=== PATIENT | female | born 1995 | race Caucasian/White ===

== ENCOUNTER 2018-03-02 10:26 | Emergency (ER) | payer OTHER ==
--- NOTE | 2018-03-02 11:03 | ER Document Report ---
ED General - General Chief Complaint: Abdominal Pain Stated Complaint: ABDOMINAL PAIN, DIARRHEA Time Seen by Provider: 03/02/18 10:41 TRAVEL OUTSIDE OF THE [place].S. IN LAST 30 DAYS: No - HPI Patient complains to provider of: Diarrhea abdominal pain Notes: Patient coming in for evaluation diarrhea abdominal pain. Patient has a home function tests states approximately 5 weeks by dates. Patient states that the pain suprapubic going up through straight to the epigastric region. Patient denies any nausea vomiting. Denies any fevers chills. Patient denies any recent antibiotics however recently moved from [place] to walk around. Resting company upon my evaluation. Patient has not seek any care at . Patient is not currently taking any vitamins. - Related Data Allergies/Adverse Reactions: sulfamethoxazole [From Bactrim] Allergy (Verified 03/02/18 10:34) trimethoprim [From Bactrim] Allergy (Verified 03/02/18 10:34) Past Medical History - Social History Smoking Status: Never Smoker Chew tobacco use (# tins/day): No Frequency of alcohol use: None Drug Abuse: None Family History: Reviewed & Not Pertinent Patient has suicidal ideation: No Patient has homicidal ideation: No Renal/ Medical History: Denies: Hx Peritoneal Dialysis Review of Systems - Review of Systems Constitutional: No symptoms reported EENT: No symptoms reported Cardiovascular: No symptoms reported Respiratory: No symptoms reported Gastrointestinal: Abdominal pain, Diarrhea Genitourinary: No symptoms reported Female Genitourinary: No symptoms reported Musculoskeletal: No symptoms reported Skin: No symptoms reported Hematologic/Lymphatic: No symptoms reported Neurological/Psychological: No symptoms reported -: Yes All other systems reviewed and negative Physical Exam - Vital signs Vitals: Temp Pulse Resp BP Pulse Ox 98.8 F 87 16 129/76 H 97 03/02/18 10:30 03/02/18 10:30 03/02/18 10:30 03/02/18 10:30 03/02/18 10:30 Interpretation: Normal - General General appearance: Appears well, Alert - HEENT Head: Normocephalic, Atraumatic Eyes: Normal Pupils: PERRL - Respiratory Respiratory status: No respiratory distress Chest status: Nontender Breath sounds: Normal Chest palpation: Normal - Cardiovascular Rhythm: Regular Heart sounds: Normal auscultation Murmur: No - Abdominal Inspection: Normal Distension: No distension Bowel sounds: Normal Tenderness: Nontender Organomegaly: No organomegaly - Back Back: Normal, Nontender - Extremities General upper extremity: Normal inspection, Nontender, Normal color, Normal ROM , Normal temperature General lower extremity: Normal inspection, Nontender, Normal color, Normal ROM , Normal temperature, Normal weight bearing. No: Efrem's sign - Neurological Neuro grossly intact: Yes Cognition: Normal Orientation: AAOx4 Ana Coma Scale Eye Opening: Spontaneous [place] Coma Scale Verbal: Oriented [place] Coma Scale Motor: Obeys Commands [place] Coma Scale Total: 15 Speech: Normal Motor strength normal: LUE, RUE, LLE, RLE Sensory: Normal - Psychological Associated symptoms: Normal affect, Normal mood - Skin Skin Temperature: Warm Skin Moisture: Dry Skin Color: Normal Course - Re-evaluation Re-evalutation: 03/02/18 15:14 The patient presents with abdominal pain without signs of peritonitis or other life-threatening or serious etiology. The patient appears stable for discharge and has been instructed to return immediately if the symptoms worsen in any way , or in 8-12hr if not improved for re-evaluation. The patient has been instructed to return if the symptoms worsen or change in any way. Possible early uterine seen. Gestational sac seen. Risk of ectopic therefore decreased. Recommend patient follow-up in 7248 hours for repeat testing. Patient is understanding patient states understanding about use of Celestone vitamins were used to vitamins. Patient was given information for nausea vomiting. Patient also educated about increasing her fiber and yogurt intake for diarrhea. - Vital Signs Vital signs: Temp Pulse Resp BP Pulse Ox 97.3 F 82 14 122/74 100 03/02/18 14:00 03/02/18 14:00 03/02/18 14:00 03/02/18 14:00 03/02/18 14:00 - Laboratory Result Diagrams: 03/02/18 10:50 03/02/18 10:50 Laboratory results interpreted by me: 03/02/18 10:50 Beta HCG, Quant 4931.40 H Discharge - Discharge Clinical Impression: Diarrhea during Abdominal pain during Qualifiers: Trimester: first trimester Qualified Code(s): O26.891 - Other specified related conditions, first trimester Condition: Good Instructions: Abdominal Pain ([facility]), Pelvic Pain in ([facility]), ( [facility]) Additional Instructions: For nausea and vomiting during I recomment: Start with 10-12.5 mg of pyridoxine (vitamin B6) three times a day for 2 days. If not fully effective, Increase to 12.5 mg of pyridoxine four times a day for 2 days. If not fully effective, Increase to 25 mg of pyridoxine three times a day for 2 days. If not fully effective, Continue 25 mg pyridoxine 3 times a day, and add 12.5 mg of doxylamine before bedtime each day for 2 days. If not fully effective, Continue 25 mg pyridoxine 3 times a day, and take 12.5 mg of doxylamine twice a day. If not fully effective, Continue 25 mg pyridoxine 3 times a day, and take 12.5 mg of doxylamine three times a day. If not fully effective, Continue 25 mg pyridoxine 3 times a day, and 12.5 mg of doxylamine 3 times a day , while adding Emetrol, one to two tablespoons (15-30 cc) taken once or twice a day as needed. (Emetrol is an lxjz-wvo-imdexsr mixture of sugar syrups and phosphoric acid [phosphorylated carbohydrate solution]) that acts by soothing the actual wall of the gastrointestinal tract). If not fully effective, Consult with your doctor. Your ultrasound shows a gestational sac looks like to be early uterine approximately 5 weeks. I would recommend following up in 4872 hours for repeat beta-hCG testing. Lab form is any discharge packet. Drink plenty fluids to stay hydrated take medications as stated above for any nausea that she may have. Would recommend increasing her fiber eating more yogurt to help out with her diarrhea. Return to ER symptoms worsen follow-up with the SUPPORT SERVICES COORDINATOR clinic or health department Prescriptions: Prenat 115/Iron Fum/Folic/Dss [ 19 Tablet] 1 each PO DAILY #30 tablet Forms: Follow-Up Laboratory Testing Referrals: REECE GARCIA MD [ACTIVE STAFF] - Follow up as needed
[2018-03-02 11:34] LABS: ABSOLUTE EOSINOPHILS # (AUTO) 0.1 10^3/uL (0.0-0.6); ABSOLUTE LYMPHOCYTES (AUTO) 1.9 10^3/uL (0.5-4.7); ABSOLUTE MONOCYTES (AUTO) 0.5 10^3/uL (0.1-1.4); BASOPHILS % (AUTO) 0.2 % (0-2); EOSINOPHILS % (AUTO) 1.7 % (0-6); HEMATOCRIT 40.4 % (36.0-47.0); LYMPHOCYTES % (AUTO) 29.2 % (13-45); MEAN CORPUSCULAR HEMOGLOBIN 32.5 pg (27.0-33.4); MEAN CORPUSCULAR HGB CONC 34.6 g/dL (32.0-36.0); MEAN CORPUSCULAR VOLUME 94 fl (80-97); MONOCYTES % (AUTO) 7.7 % (3-13); PLATELET COUNT 275 10^3/uL (150-450); RED BLOOD COUNT 4.31 10^6/uL (3.72-5.28); RED CELL DISTRIBUTION WIDTH 12.3 % (11.5-14.0); SEGMENTED NEUTROPHILS % (AUTO) 61.2 % (42-78); TOTAL CELLS COUNTED % (AUTO) 100 %; WHITE BLOOD COUNT 6.6 10^3/uL (4.0-10.5)
[2018-03-02 11:54] LABS: ALANINE AMINOTRANSFERASE 35 U/L (9-52); ALBUMIN 4.3 g/dL (3.5-5.0); ALKALINE PHOSPHATASE 50 U/L (38-126); ANION GAP 14 (5-19); ASPARTATE AMINO TRANSFERASE 21 U/L (14-36); BILIRUBIN,DIRECT 0.3 mg/dL (0.0-0.4); BILIRUBIN,TOTAL 0.3 mg/dL (0.2-1.3); BLOOD UREA NITROGEN 7 mg/dL (7-20); CALCIUM 9.8 mg/dL (8.4-10.2); CARBON DIOXIDE 26 mmol/L (22-30); CHLORIDE 103 mmol/L (98-107); GLUCOSE 95 mg/dL (75-110); LIPASE 43.8 U/L (23-300); TOTAL PROTEIN 7.6 g/dL (6.3-8.2)
--- NOTE | 2018-03-02 13:32 | RADIOLOGY REPORT (SQ) ---
EXAM DESCRIPTION: U/S OB TRANSVAG W/DOPPLER COMPLETED DATE/TIME: 03/02/2018 1:21 pm REASON FOR STUDY: +preg abd pain COMPARISON: None. TECHNIQUE: Transvaginal static and realtime grayscale images acquired of the pelvis. Additional nolan cted spectral and color Doppler images recorded. All images stored on PACs. bHC,931 LIMITATIONS: None. FINDINGS: UTERUS: No masses. No anomalies. GESTATIONAL SAC: Yes. Mean sac diameter corresponding to 5 weeks 3 days. YOLK SAC: No. POLE: No. RIGHT ADNEXA: Normal ovary with normal vascular flow. No adnexal free fluid. No adnexal masses. LEFT ADNEXA: Ovary not identified. No adnexal free fluid. No adnexal masses. FREE FLUID: None. OTHER: No other significant finding. IMPRESSION: POSSIBLE EARLY INTRAUTERINE . BHCG LEVEL APPROPRIATE FOR ENDOMETRIAL FINDINGS. CONSIDER F/U BHCG AND/OR ULTRASOUND FOR VERIFICATION AND TO EXCLUDE ECTOPIC . Trimester of : First - 0 to 13 weeks. TECHNICAL DOCUMENTATION: JOB ID: [id number] [employer]- All Rights Reserved Reading location - IP/workstation name: [email or web address]
[2018-03-02 14:36] VITALS: BP 122/74
== END 2018-03-02 14:00 | disposition home or self-care (01) ==
LOC: ER 10:26
DX: O26.891 Other specified pregnancy related conditions, first trimester (principal); R10.30 Lower abdominal pain, unspecified; R10.13 Epigastric pain; R19.7 Diarrhea, unspecified; Z3A.00 Weeks of gestation of pregnancy not specified; Z88.1 Allergy status to other antibiotic agents
CPT/HCPCS: 36415; 76817; 80053; 83690; 84702; 85025; 93976; 99284

== ENCOUNTER 2018-05-03 13:33 | Emergency (ER) | payer OTHER ==
--- NOTE | 2018-05-03 14:27 | ER Document Report ---
ED GI/ - General Chief Complaint: Flank Pain Stated Complaint: BACK PAIN Time Seen by Provider: 05/03/18 14:21 Notes: The patient is a 22-year-old female, 13 weeks , presents with right flank pain. She used to have frequent kidney infections and passed a kidney stone when she was younger. She denies hematuria, dysuria, abdominal pain, leakage of fluids, nausea, vomiting or fevers. TRAVEL OUTSIDE OF THE U.S. IN LAST 30 DAYS: No - Related Data Allergies/Adverse Reactions: sulfamethoxazole [From Bactrim] Allergy (Verified 05/03/18 13:47) trimethoprim [From Bactrim] Allergy (Verified 05/03/18 13:47) Past Medical History - General Information source: Patient - Social History Smoking Status: Never Smoker Chew tobacco use (# tins/day): No Frequency of alcohol use: None Drug Abuse: None Family History: Reviewed & Not Pertinent Patient has suicidal ideation: No Patient has homicidal ideation: No Renal/ Medical History: Denies: Hx Peritoneal Dialysis Review of Systems - Review of Systems Notes: REVIEW OF SYSTEMS: CONSTITUTIONAL: -fevers, -chills EENT: -eye pain, -difficulty swallowing, -nasal congestion CARDIOVASCULAR: -chest pain, -syncope. RESPIRATORY: -cough, -SOB GASTROINTESTINAL: -abdominal pain, -nausea, -vomiting, -diarrhea GENITOURINARY: -dysuria, -hematuria MUSCULOSKELETAL: +right flank pain, -neck pain SKIN: -rash or skin lesions. HEMATOLOGIC: -easy bruising or bleeding. LYMPHATIC: -swollen, enlarged glands. NEUROLOGICAL: -altered mental status or loss of consciousness, -headache, - neurologic symptoms PSYCHIATRIC: -anxiety, -depression. ALL OTHER SYSTEMS REVIEWED AND NEGATIVE. Physical Exam - Vital signs Vitals: Temp Pulse Resp BP Pulse Ox 98.5 F 102 H 18 125/71 97 05/03/18 13:57 05/03/18 13:57 05/03/18 13:57 05/03/18 13:57 05/03/18 13:57 - Notes Notes: PHYSICAL EXAMINATION: GENERAL: Well-appearing, well-nourished and in no acute distress. HEAD: Atraumatic, normocephalic. EYES: Pupils equal round and reactive to light, extraocular movements intact, sclera anicteric, conjunctiva are normal. ENT: nares patent, oropharynx clear without exudates. Moist mucous membranes. NECK: Normal range of motion, supple without lymphadenopathy LUNGS: Breath sounds clear to auscultation bilaterally and equal. No wheezes rales or rhonchi. HEART: Regular rate and rhythm without murmurs ABDOMEN: Soft, nontender, normoactive bowel sounds. No guarding, no rebound. No masses appreciated. EXTREMITIES: Normal range of motion, no pitting or edema. No cyanosis. NEUROLOGICAL: Cranial nerves grossly intact. Normal speech, normal gait. Normal sensory and motor exams. PSYCH: Normal mood, normal affect. SKIN: Warm, Dry, normal turgor, no rashes or lesions noted. Course - Re-evaluation Re-evalutation: Patient appears very well. Her abdomen is completely soft and nontender. Urinalysis does not show evidence of a UTI or pyelonephritis and renal ultrasound does not show evidence of large kidney stones. Instructed her to follow-up with her OB. - Vital Signs Vital signs: Temp Pulse Resp BP Pulse Ox 98.5 F 102 H 18 125/71 97 05/03/18 13:57 05/03/18 13:57 05/03/18 13:57 05/03/18 13:57 05/03/18 13:57 - Laboratory Laboratory results interpreted by me: 05/03/18 14:34 Urine Ketones 20 H - Diagnostic Test Radiology reviewed: Image reviewed Radiology results interpreted by me: Renal US: Normal Discharge - Discharge Clinical Impression: Right flank pain Condition: Stable Disposition: HOME, SELF-CARE Additional Instructions: Flank Pain We weren't able to prove an exact cause for your flank pain. Pain in the flank can be caused by a muscle strain or spasm. Sometimes a kidney stone causes pain, but can't be found on our tests. Infection in the kidney should be evident on a urine test. Early shingles can occasionally cause flank pain, without the rash that proves the diagnosis. On rare occasions, disease of the pancreas, aorta, spleen, or colon can create pain in the flank. At this time, there's no evidence of a dangerous condition, and it seems safe for you to be at home. If the pain goes away and does not come back, no further testing will be needed. If pain persists, or becomes more severe, we may need to repeat some tests or order additional new testing. Blood in the urine, urgency to urinate frequently, and pain that radiates to the groin can indicate a kidney stone. Fever may mean that the pain is due to infection, either of the kidney or the colon (diverticulitis). If your pain is early shingles, you should develop an eruption of blisters in the painful area within a few days. Call the doctor or return if you have pain that is spreading or becoming more severe, pain that does not resolve with time, fever, or any other new symptoms. Referrals: WERNER TAPIA MD [ACTIVE STAFF] - Follow up as needed
[2018-05-03 14:52] LABS: APPEARANCE,URINE SLIGHTLY-CLOUDY; BILIRUBIN,URINE NEGATIVE (NEGATIVE); COLOR,URINE YELLOW; GLUCOSE, URINE NEGATIVE (NEGATIVE); KETONES,URINE 20 mg/dL (NEGATIVE); LEUKOCYTE ESTERASE,URINE NEGATIVE (NEGATIVE); NITRITE,URINE NEGATIVE (NEGATIVE); PROTEIN,URINE NEGATIVE (NEGATIVE); URINE SPECIFIC GRAVITY 1.013; UROBILINOGEN,URINE NEGATIVE mg/dL (<2.0)
--- NOTE | 2018-05-03 15:19 | RADIOLOGY REPORT (SQ) ---
EXAM DESCRIPTION: U/S RETROPERITON (RENAL/AORTA) COMPLETED DATE/TIME: 05/03/2018 3:05 pm REASON FOR STUDY: right flank pain, hx of stones COMPARISON: None. TECHNIQUE: Dynamic and static grayscale images acquired of the kidneys and bladder and recorded on P ACS. Additional selected color Doppler and spectral images recorded. LIMITATIONS: None. FINDINGS: RIGHT KIDNEY: Normal size. Normal echogenicity. No solid or suspicious masses. No hydronep hrosis. No calcifications. LEFT KIDNEY: Normal size. Normal echogenicity. No solid or suspicious masses. No hydronephrosis. No calcifications. BLADDER: Not fully distended OTHER FINDINGS: Patient is 4 months IMPRESSION: Both collecting systems appear normal. TECHNICAL DOCUMENTATION: JOB ID: [id number] [employer]- All Rights Reserved Reading location - IP/workstation name: [email or web address]
[2018-05-03 15:36] VITALS: BP 101/63
== END 2018-05-03 15:35 | disposition home or self-care (01) ==
LOC: ER 13:33
DX: O26.891 Other specified pregnancy related conditions, first trimester (principal); R10.9 Unspecified abdominal pain; Z3A.13 13 weeks gestation of pregnancy; Z87.440 Personal history of urinary (tract) infections; Z87.442 Personal history of urinary calculi; Z88.1 Allergy status to other antibiotic agents
CPT/HCPCS: 76770; 81001; 99284

== ENCOUNTER 2018-07-24 00:34 | Emergency (ER) | payer OTHER ==
--- NOTE | 2018-07-24 01:23 | ER Document Report ---
HPI - HPI Patient complains to provider of: Left foot pain Onset: This evening Onset/Duration: Persistent Quality of pain: Achy Pain Level: 2 Context: Patient presents complaining of left foot pain. 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 Patient states that she does walk in a way that puts increased pressure on the lateral aspect of her foot. Patient denies any injury. Associated Symptoms: Other - Left foot pain Exacerbated by: Standing, Walking Relieved by: Denies Similar symptoms previously: No Recently seen / treated by doctor: No - ROS ROS below otherwise negative: Yes Systems Reviewed and Negative: Yes All other systems reviewed and negative - CONSTITUTIONAL Constitutional: DENIES: Fever, Chills - MUSCULOSKELETAL Musculoskeletal: REPORTS: Extremity pain. 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 IN LAST 30 DAYS: No - HEENT HEENT: Atraumatic, Normocephalic - NECK Neck: Normal Inspection - RESPIRATORY Respiratory: No Respiratory Distress - CARDIOVASCULAR Pulses: Normal: Dorsalis pedis - MUSCULOSKELETAL/EXTREMETIES Musculoskeletal/Extremeties: MAEW, Tender - Tenderness over base of left fifth metatarsal, normal skin color and temperature overlying this area - NEURO Level of Consciousness: Awake, Alert, Appropriate Motor/Sensory: No Motor Deficit - DERM Integumentary: Warm, Dry, No Rash Course - Re-evaluation Re-evalutation: 07/24/18 02:16 Offered patient crutches, patient declined. Patient without any history of traumatic injury, no obvious fracture noted on x-ray. No concern for cellulitis or septic arthritis. Good return precautions given to patient. Patient encouraged to wear supportive shoes when she is at work. Patient advised to follow-up with orthopedics for any persistent pain or problems. - Vital Signs Vital signs: Temp Pulse Resp BP Pulse Ox 97.7 F 87 20 106/67 99 07/24/18 01:02 07/24/18 01:02 07/24/18 01:02 07/24/18 01:02 07/24/18 01:02 - Diagnostic Test Radiology reviewed: Pending, Image reviewed Discharge - Discharge Clinical Impression: Left foot pain Condition: Stable Disposition: HOME, SELF-CARE Instructions: Tendonitis ([facility]), Acetaminophen Additional Instructions: Return immediately for any new or worsening symptoms Followup with your primary care provider, call tomorrow to make a followup appointment Follow-up with orthopedics for any persistent pain or problems Forms: Return to Work Referrals: LORRIE KASPER MD [Primary Care Provider] - Follow up as needed [facility] [Provider Group] - Follow up as needed
[2018-07-24 02:36] VITALS: BP 110/69
--- NOTE | 2018-07-24 04:03 | RADIOLOGY REPORT (SQ) ---
EXAM DESCRIPTION: XR FOOT 3 OR MORE VIEWS COMPLETED DATE/TME: 07/24/2018 01:21 CLINICAL HISTORY: 22 years Female, pain over base of 5th MT COMPARISON: None. Findings: Swelling at the lateral aspect of the left foot. Bones, joints, and soft tissues of the LEFT XR FOOT 3 OR MORE VIEWS appear otherwise intact. IMPRESSION: Swelling.
== END 2018-07-24 02:19 | disposition home or self-care (01) ==
LOC: ER 00:34
DX: O99.89 Other specified diseases and conditions complicating pregnancy, childbirth and the puerperium (principal); M79.672 Pain in left foot; Z3A.25 25 weeks gestation of pregnancy
CPT/HCPCS: 99283

== ENCOUNTER 2018-08-01 23:12 | Outpatient (CLI) | payer OTHER ==
[2018-08-01 23:57] LABS: APPEARANCE,URINE CLEAR; BILIRUBIN,URINE NEGATIVE (NEGATIVE); COLOR,URINE YELLOW; GLUCOSE, URINE NEGATIVE (NEGATIVE); KETONES,URINE 25 mg/dL (NEGATIVE); LEUKOCYTE ESTERASE,URINE NEGATIVE (NEGATIVE); NITRITE,URINE NEGATIVE (NEGATIVE); PROTEIN,URINE NEGATIVE (NEGATIVE)
[2018-08-01 23:59] LABS: URINE SPECIFIC GRAVITY 1.027
[2018-08-02 00:17] LABS: URINE AMPHETAMINES SCREEN NEGATIVE; URINE BARBITURATES SCREEN NEGATIVE; URINE BENZODIAZEPINES SCREEN NEGATIVE; URINE COCAINE SCREEN NEGATIVE; URINE MARIJUANA (THC) SCREEN NEGATIVE; URINE METHADONE SCREEN NEGATIVE; URINE PHENCYCLIDINE SCREEN NEGATIVE
--- NOTE | 2018-08-02 00:56 | RADIOLOGY REPORT (SQ) ---
US LIMITED HISTORY: Evaluate for placental abruption. COMPARISON: None. TECHNIQUE: Multiple grayscale and color Doppler sonographic images of the uterus were obtained by the polysomnographic technologist. Selected static images were presented to the radiologist. FINDINGS: A single live fetus is identified in vertex presentation. The placenta is located posterior, and is free of the cervical os. Cervix is closed and measures 3 cm in length. Amniotic fluid is 17.0 cm. heart rate is 131 beats per minute. IMPRESSION: Single live IUP with a composite age of 26 weeks 4 days in vertex presentation. Posterior placenta.
== END 2018-08-02 01:13 | disposition home or self-care (01) ==
LOC: LC 23:12
PROVIDERS: ATTEND Obstetrics & Gynecology
PROC: 4A1HXCZ Monitoring of Products of Conception, Cardiac Rate, External Approach (ICD-10-PCS; principal; 2018-08-01)
DX: Z36.89 Encounter for other specified antenatal screening (principal)
CPT/HCPCS: 76815; 80307; 81001

== ENCOUNTER 2018-09-11 18:46 | Outpatient (CLI) | payer OTHER ==
[2018-09-11 19:25] LABS: APPEARANCE,URINE SLIGHTLY-CLOUDY; BILIRUBIN,URINE NEGATIVE (NEGATIVE); COLOR,URINE YELLOW; GLUCOSE, URINE NEGATIVE (NEGATIVE); KETONES,URINE NEGATIVE (NEGATIVE); LEUKOCYTE ESTERASE,URINE TRACE (NEGATIVE); NITRITE,URINE NEGATIVE (NEGATIVE); PROTEIN,URINE NEGATIVE (NEGATIVE); URINE SPECIFIC GRAVITY 1.018; UROBILINOGEN,URINE NEGATIVE mg/dL (<2.0)
[2018-09-11 19:44] LABS: URINE AMPHETAMINES SCREEN NEGATIVE; URINE BARBITURATES SCREEN NEGATIVE; URINE BENZODIAZEPINES SCREEN NEGATIVE; URINE COCAINE SCREEN NEGATIVE; URINE MARIJUANA (THC) SCREEN NEGATIVE; URINE METHADONE SCREEN NEGATIVE; URINE PHENCYCLIDINE SCREEN NEGATIVE
--- NOTE | 2018-09-11 20:25 | Non Stress Test Report ---
Non Stress Test Datetime Report Generated by CPN: 09/11/2018 20:24 DEMOGRAPHIC Test Number: 1 EGA NST: 32.2 INDICATION Indication for Study: Ordered by Provider VITAL SIGNS Temperature - NST: 98.2 URINE RESULTS Urine Protein, NST: Negative Urine Ketones - NST: Negative Urine Glucose - NST: Negative Urine Blood - NST: Negative MONITORING Monitor Explained: Monitor Explained; Test Explained; Patient Verbalized Understanding Time on Monitor: 09/11/2018 19:03 Time off Monitor: 09/11/2018 20:01 NST Duration: 58 NST INTERVENTIONS NST Interventions: PO Hydration Physician Notified NST: Dr. Rick BABY A: [id number] BABY A Movement : Present Contraction Frequency : none FHR Baseline : 150 Accelerations : 15X15 Decelerations : None Variability : Moderate 6-25bpm NST Review: Meets Criteria for Reactive NST NST Review and Verified By : Jennifer Mcarthur RN NST Results: Reactive NST REPORT Report Trigger: Send Report
== END 2018-09-11 20:03 | disposition home or self-care (01) ==
LOC: LC 18:46
PROVIDERS: ATTEND Obstetrics & Gynecology Gynecology
PROC: 4A1HXCZ Monitoring of Products of Conception, Cardiac Rate, External Approach (ICD-10-PCS; principal; 2018-09-11)
DX: O47.03 False labor before 37 completed weeks of gestation, third trimester (principal); Z3A.32 32 weeks gestation of pregnancy
CPT/HCPCS: 59025; 80307; 81001; 84112

== ENCOUNTER 2018-10-31 22:00 | Outpatient (CLI) | payer OTHER ==
[2018-10-31 22:31] LABS: APPEARANCE,URINE CLOUDY; BILIRUBIN,URINE NEGATIVE (NEGATIVE); COLOR,URINE YELLOW; GLUCOSE, URINE NEGATIVE (NEGATIVE); KETONES,URINE NEGATIVE (NEGATIVE); LEUKOCYTE ESTERASE,URINE SMALL (NEGATIVE); NITRITE,URINE NEGATIVE (NEGATIVE); PROTEIN,URINE NEGATIVE (NEGATIVE); URINE SPECIFIC GRAVITY 1.008; UROBILINOGEN,URINE NEGATIVE mg/dL (<2.0)
[2018-10-31 22:48] LABS: URINE AMPHETAMINES SCREEN NEGATIVE; URINE BARBITURATES SCREEN NEGATIVE; URINE BENZODIAZEPINES SCREEN NEGATIVE; URINE COCAINE SCREEN NEGATIVE; URINE MARIJUANA (THC) SCREEN NEGATIVE; URINE METHADONE SCREEN NEGATIVE; URINE PHENCYCLIDINE SCREEN NEGATIVE
--- NOTE | 2018-10-31 23:13 | Non Stress Test Report ---
Non Stress Test Datetime Report Generated by CPN: 10/31/2018 23:13 DEMOGRAPHIC EGA NST: 39.3 INDICATION Indication for Study: Ordered by Provider Indication for Study (NST) Other: LC URINE RESULTS Urine Protein, NST: Negative Urine Ketones - NST: Negative Urine Glucose - NST: Negative Urine Blood - NST: Positive MONITORING Monitor Explained: Monitor Explained; Test Explained; Patient Verbalized Understanding Time on Monitor: 10/31/2018 22:24 Time off Monitor: 10/31/2018 23:09 NST Duration: 45 NST INTERVENTIONS NST Interventions: None Physician Notified NST: Andrei BABY A: [id number] BABY A Movement : Present Contraction Frequency : 2-4 FHR Baseline : 140 Accelerations : 15X15 Decelerations : None Variability : Moderate 6-25bpm NST Review: Meets Criteria for Reactive NST NST Review and Verified By : Jennifer Mcarthur RN NST Results: Reactive NST REPORT Report Trigger: Send Report
--- NOTE | 2018-11-01 00:04 | RADIOLOGY REPORT (SQ) ---
EXAM DESCRIPTION: US LIMITED COMPLETED DATE/TME: 10/31/2018 00:00 CLINICAL HISTORY: 22 years, Female, SUHAIL COMPARISON: Prior ultrasound 08/02/2018 TECHNIQUE: Limited OB ultrasound for assessment of the amniotic fluid index. LIMITATIONS: None. FINDINGS: There is a single, live intrauterine gestation with heart tones obtained at 1 heart 40 bpm. Cephalic presentation. Amniotic fluid index is obtained at 9.7 cm. Clinical age of 39 weeks 3 days.. IMPRESSION: SUHAIL of 9.7 cm. Single, live intrauterine gestation with clinical age 39 weeks 3 days. copyright 2010 [employer]- All Rights Reserved
== END 2018-11-01 00:40 | disposition home or self-care (01) ==
LOC: LC 22:00
PROVIDERS: ATTEND Obstetrics & Gynecology
PROC: 4A1HXCZ Monitoring of Products of Conception, Cardiac Rate, External Approach (ICD-10-PCS; principal; 2018-10-31)
DX: O47.1 False labor at or after 37 completed weeks of gestation (principal); Z3A.39 39 weeks gestation of pregnancy
CPT/HCPCS: 59025; 81005; 80307; 84112; 76815; Q0114

== ENCOUNTER 2018-11-02 09:29 | Inpatient (IN) | payer OTHER ==
--- NOTE | 2018-11-02 11:35 | Admission Physical ---
Datetime Report Generated by CPN: 11/02/2018 11:35 CURRENT ADMISSION Chief Complaint: Uterine Contractions Indication for Induction: Not Applicable Admit Impression : Active Labor Admit Plan: Admit to Unit; Initiate Labor Protocol ALLERGIES Medication Allergies: Yes Medication Allergies: sulfamethoxazole (07/24/2018); trimethoprim (07/24/2018) Latex: No Latex Allergies OBSTETRICAL HISTORY EDC: 11/04/2018 00:00 : 1 Para: 0 Term: 0 : 0 SAB: 0 IAB: 0 Ectopic: 0 Livin Cesareans: 0 VBACs: 0 Multiple Births: 0 Gestational Diabetes: No Rh Sensitization: No Incompetent Cervix: No JOHNSON: No Infertility: No ART Treatment: No Uterine Anomaly: No IUGR: No Hx Previous C/S: No Macrosomia: No Hx Loss/Stillborn: No PIH: No Hx : No Placenta Previa/Abruption: No Depression/PP Depression: No PTL/PROM: No Post Hemorrhage: No Current Procedures: Ultrasound Obstetrical History Comments: G1- current SEE RECORDS Alcohol: No Marijuana : No Cocaine: No Other Illicit Drugs: No Cigarettes: Never Smoker. 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 Surgery: No Heart Disease: No Hosp/Surgery: No Autoimmune Disorder: No Anesthetic Complications: No Kidney Disease: No Abnormal Pap Smear: No Neuro/Epilepsy: No Psychiatric Disorders: No Other Medical Diseases: No Hepatitis/Liver Disease: No Significant Family History: No Varicosities/Phlebitis: No Trauma/Violence : No Thyroid Dysfunction: No INFECTIOUS HISTORY Gonorrhea: No Genital Herpes: No Chlamydia: No Tuberculosis: No Syphilis: No Hepatitis: No HIV/AIDS Exposure: No Rash or Viral Illness: No HPV: No PHYSICAL EXAM General: Normal HEENT: Deferred Neurologic: Normal Thyroid: Deferred Heart: Normal Lungs: Normal Breast: Deferred Back: Deferred Abdomen: Normal Genitourinary Exam: Normal Extremities: Normal DTRs: Deferred Pelvic Type: Adequate Vital Signs: Reviewed VAGINAL EXAM Dilatation: 5 Effacement: 90 Station: 0 MEMBRANES Membranes: Bulging FETUS A EGA: 39.5 Monitoring: External US FHR- Baseline: 135 Decelerations: None FHR Category: Category I Presentation: Vertex Admit Comment: Sent from [facility] for evaluation Benign course + GBS PLANS FOR LABOR AND DELIVERY Labor and Delivery: None Pain Management: Natural Feeding Preference: Formula Benefit of Breast Feed Discussed: Yes Circumcision: No INFORMED CONSENT Assignment: Bartolo Franco MD Signature: with User ID: [email or web address] : with User ID: [email or web address]
[2018-11-02] MEDS: RINGERS SOLUTION,LACTATED 1,000 ML IV PRN ×2 (11:41→13:52)
[2018-11-02 11:46] LABS: APPEARANCE,URINE SLIGHTLY-CLOUDY; BILIRUBIN,URINE NEGATIVE (NEGATIVE); COLOR,URINE YELLOW; GLUCOSE, URINE NEGATIVE (NEGATIVE); KETONES,URINE TRACE mg/dL (NEGATIVE); LEUKOCYTE ESTERASE,URINE NEGATIVE (NEGATIVE); NITRITE,URINE NEGATIVE (NEGATIVE); PROTEIN,URINE NEGATIVE (NEGATIVE); URINE SPECIFIC GRAVITY 1.012; UROBILINOGEN,URINE NEGATIVE mg/dL (<2.0)
[2018-11-02] MEDS ORDERED: PENICILLIN G-K 5 MILLION UNIT VIAL ONE ×2 (11:50→15:51)
[2018-11-02] MEDS ORDERED: PENICILLIN G POTASSIUM 5,000,000 UNIT in DEXTROSE 5%-WATER 100 ML IV ONE (12:00)
[2018-11-02 12:14] LABS: URINE AMPHETAMINES SCREEN NEGATIVE; URINE BARBITURATES SCREEN NEGATIVE; URINE BENZODIAZEPINES SCREEN NEGATIVE; URINE COCAINE SCREEN NEGATIVE; URINE MARIJUANA (THC) SCREEN NEGATIVE; URINE METHADONE SCREEN NEGATIVE; URINE PHENCYCLIDINE SCREEN NEGATIVE
[2018-11-02 12:31] LABS: ABSOLUTE EOSINOPHILS # (AUTO) 0.1 10^3/uL (0.0-0.6); ABSOLUTE LYMPHOCYTES (AUTO) 1.3 10^3/uL (0.5-4.7); ABSOLUTE MONOCYTES (AUTO) 0.5 10^3/uL (0.1-1.4); ABSOLUTE NEUT (AUTO) 10.4 10^3/uL (1.7-8.2); BASOPHILS % (AUTO) 0.2 % (0-2); EOSINOPHILS % (AUTO) 0.4 % (0-6); HEMATOCRIT 38.2 % (36.0-47.0); HEMOGLOBIN 12.9 g/dL (12.0-15.5); LYMPHOCYTES % (AUTO) 10.6 % (13-45); MEAN CORPUSCULAR HEMOGLOBIN 30.7 pg (27.0-33.4); MEAN CORPUSCULAR HGB CONC 33.8 g/dL (32.0-36.0); MEAN CORPUSCULAR VOLUME 91 fl (80-97); MONOCYTES % (AUTO) 3.8 % (3-13); PLATELET COUNT 276 10^3/uL (150-450); RED BLOOD COUNT 4.19 10^6/uL (3.72-5.28); RED CELL DISTRIBUTION WIDTH 12.9 % (11.5-14.0); TOTAL CELLS COUNTED % (AUTO) 100 %; WHITE BLOOD COUNT 12.2 10^3/uL (4.0-10.5)
[2018-11-02] MEDS ORDERED: RINGERS SOLUTION,LACTATED 300 ML IV ONE (13:49)
[2018-11-02] MEDS ORDERED: MISOPROSTOL 0.2 MG TABLET ONE (15:25)
[2018-11-02] MEDS ORDERED: OXYTOCIN/NORMAL SALINE 20 UNIT/1,000 ML RTUINJ ONE (15:25)
[2018-11-02] MEDS ORDERED: LIDOCAINE 1% INJ-PF (10 MG/ML) 30 ML SDV ONE (15:25)
[2018-11-02] MEDS ORDERED: NALBUPHINE HCL INJ 10 MG/1 ML AMPULE INJ ONE (15:36)
[2018-11-02] MEDS ORDERED: DIPHENHYDRAMINE HCL 25 MG CAPSULE PO ONE (15:36)
[2018-11-02] MEDS ORDERED: NALBUPHINE HCL INJ 10 MG/1 ML AMPULE ONE (15:51)
[2018-11-02] MEDS ORDERED: DIPHENHYDRAMINE HCL 25 MG CAPSULE ONE (15:51)
[2018-11-02] MEDS ORDERED: PENICILLIN G POTASSIUM 2,500,000 UNIT in DEXTROSE 5%-WATER 50 ML IV SCH (16:00)
[2018-11-02] MEDS ORDERED: ACETAMINOPHEN WITH CODEINE #3 TABLET ONE (20:03)
[2018-11-02] MEDS ORDERED: DIPH/PERTUSS(ACELL)/TETANUS VAC/PF 0.5 ML SYR (>=10YO) IM PRN (20:08)
[2018-11-02] MEDS ORDERED: DIBUCAINE 1% OINTMENT 28 GM TP PRN (20:08)
[2018-11-02] MEDS ORDERED: BENZOCAINE/MENTHOL AEROSOL SPRAY 56 ML TOP PRN (20:08)
[2018-11-02] MEDS ORDERED: PROMETHAZINE HCL 25 MG SUPP.RECT PR PRN (20:08)
[2018-11-02] MEDS ORDERED: NA PHOS,M-B/NA PHOS,DI-BA (ADULT) 133 ML ENEMA PR PRN (20:08)
[2018-11-02] MEDS ORDERED: OXYTOCIN/NORMAL SALINE 20 UNIT/1,000 ML RTUINJ IV PRN (20:08)
[2018-11-02] MEDS ORDERED: PSEUDOEPHEDRINE HCL 30 MG TABLET PO PRN (20:08)
[2018-11-02] MEDS ORDERED: ACETAMINOPHEN 650 MG SUPP.RECT PR PRN (20:08)
[2018-11-02] MEDS ORDERED: GLYCERIN/WITCH HAZEL LEAF 1 EACH MED..PAD TP PRN (20:08)
[2018-11-02] MEDS ORDERED: ACETAMINOPHEN WITH CODEINE #3 TABLET PO PRN ×2 (20:08)
[2018-11-02] MEDS ORDERED: PROMETHAZINE HCL INJ 25 MG/1 ML VIAL IV PRN (20:08)
[2018-11-02] MEDS ORDERED: DIPHENHYDRAMINE HCL 25 MG CAPSULE PO PRN (20:08)
[2018-11-02] MEDS ORDERED: PROMETHAZINE HCL 25 MG TABLET PO PRN (20:08)
[2018-11-02] MEDS ORDERED: MEASLES,MUMPS&RUBELLA VACC/PF 0.5 ML VIAL SUBCUT PRN (20:08)
[2018-11-02] MEDS ORDERED: MAGNESIUM HYDROXIDE SUSP 30 ML UDCUP PO PRN (20:08)
[2018-11-02] MEDS ORDERED: ZOLPIDEM TARTRATE 5 MG TABLET PO PRN (20:08)
--- NOTE | 2018-11-02 21:50 | Delivery Summary ---
Del Sum A-C Datetime Report Generated by CPN: 11/02/2018 21:49 DELIVERY PERSONNEL DELIVERY PERSONNEL: [id number] Delivery Doctor:: Bartolo Franco MD Labor and Delivery Nurse:: Lian Blunt RN Labor and Delivery Nurse:: Nicola Kingtson RN Boiler Operators Supervisor/PUBLIC SAFETY POLICE: Ysabel Miller, AUDIO VISUAL DIRECTOR MATERNAL INFORMATION Delivery Anesthesia: None Medications After Delivery: Pitocin Drip 20 Units/1000ml NSS Estimated Blood Loss (ml): 250 Maternal Complications: None LABOR SUMMARY EDC: 11/04/2018 00:00 No. Babies in Womb: 0 Attempted: No Labor Anesthesia: None LABOR INFORMATION Reason for Induction: Not Applicable Onset of Labor: 11/02/2018 11:19 Complete Dilatation: 11/02/2018 19:08 Oxytocin: N/A Group B Beta Strep: positive Antibiotics # of Doses: 2 Antibiotics Time of Last Dose: 15:57 Name of Antibiotic Given: PCN Steroids Given: None Reason Steroids Not Administered: Not Applicable MEMBRANES Membranes Rupture Method: Artificial Rupture of Membranes: 11/02/2018 15:35 Length of Rupture (hr): 4.18 Amniotic Fluid Color: Bloody Amniotic Fluid Amount: Small Amniotic Fluid Odor: Normal STAGES OF LABOR Stage 1 hr: 7 Stage 1 min: 49 Stage 2 hr: 0 Stage 2 min: 38 Stage 3 hr: 0 Stage 3 min: 10 Total Time in Labor hr: 8 Total Time in Labor min: 37 VAGINAL DELIVERY Episiotomy: None Laceration #1: Perineal Laceration Extension #1: Second Degree Laceration #2: None Laceration Extension #2: N/A Laceration #3: None Laceration Extension #3: N/A Laceration Repair: Yes Laceration Repair Note: repair with 3-0 chromic in usual fashion Sponge Count Correct: Vaginal Sweep Performed Sharps Count Correct: Yes CSECTION DELIVERY Primary Indication: N/A Secondary Indication: N/A CSection Incidence: N/A Labor: N/A Elective: N/A CSection Incision: N/A BABY A INFORMATION Delivery Date/Time: 11/02/2018 19:46 Method of Delivery: Vaginal Born in Route : No : N/A Forceps: N/A Vacuum Extraction: N/A Shoulder Dystocia : No PRESENTATION/POSITION BABY A Presentation: Cephalic Cephalic Presentation: Vertex Vertex Position: Left Occipital Anterior Breech Presentation: N/A PLACENTA INFORMATION BABY A Placenta Delivery Time : 11/02/2018 19:56 Placenta Method of Delivery: Spontaneous Placenta Status: Delivered SCORES BABY A Heart Rate 1 min: >100 bpm Resp Effort 1 min: Good Cry Reflex Irritability 1 min: Cough or Sneeze or Pulls Away Muscle Tone 1 min: Active Motion Color 1 min: Body [place], Extremities Blue Resuscitation Effort 1 min: Tactile Stimulation SCORE 1 MIN: 9 Heart Rate 5 min: >100 bpm Resp Effort 5 min: Good Cry Reflex Irritability 5 min: Cough or Sneeze or Pulls Away Muscle Tone 5 min: Active Motion Color 5 min: Body [place], Extremities Blue Resuscitation Effort 5 min: Tactile Stimulation SCORE 5 MIN: 9 INFORMATION BABY A Gestational Age at Delivery: 39.5 Gestational Status: Full Term- 39- 40.6 Weeks Outcome : Liveborn Condition : Stable Sex: Male IDENTIFICATION BABY A Verification Date/Time: 11/02/2018 20:12 ID Band Number: [id number] Mother's Name Verified: Yes RN Verifying Infant: C. Wenilin, RN C. Esquibal, RN WEIGHT/LENGTH BABY A Birthweight (gm): 3362 Infant Weight (lb): 7 Infant Weight (oz): 7 Infant Length (in): 19.25 Infant Length (cm): 48.90 CORD INFORMATION BABY A No. Cord Vessels: 3 Nuchal Cord : N/A Cord Blood Taken: Yes-For Storage (Mom's Blood type +) Suction: None ASSESSMENT BABY A Infant Complications: None Physical Findings at Delivery: Within Normal Limits Infant Respirations: Appears Normal Skin to Skin: No Transferred To: Remains with Mother BABY B INFORMATION : N/A SIGNATURES Signature: with User ID: [email or web address] : I was personally available for consultation and serving as supervising physician for the MLP.
[2018-11-02] MEDS ORDERED: IBUPROFEN 800 MG TABLET ONE (21:55)
[2018-11-02] MEDS: IBUPROFEN 800 MG TABLET PO SCH (21:56)
[2018-11-03] MEDS: LANSOPRAZOLE 15 MG TAB.RAP.DR PO SCH (06:31)
[2018-11-03] MEDS: IBUPROFEN 800 MG TABLET PO SCH ×3 (06:31→22:59)
[2018-11-03 06:51] LABS: HEMATOCRIT 35.1 % (36.0-47.0); HEMOGLOBIN 11.9 g/dL (12.0-15.5); MEAN CORPUSCULAR HEMOGLOBIN 30.8 pg (27.0-33.4); MEAN CORPUSCULAR HGB CONC 33.9 g/dL (32.0-36.0); MEAN CORPUSCULAR VOLUME 91 fl (80-97); PLATELET COUNT 243 10^3/uL (150-450); RED BLOOD COUNT 3.86 10^6/uL (3.72-5.28); RED CELL DISTRIBUTION WIDTH 12.7 % (11.5-14.0); WHITE BLOOD COUNT 14.8 10^3/uL (4.0-10.5)
[2018-11-03] MEDS ORDERED: MEASLES,MUMPS&RUBELLA VACC/PF 0.5 ML VIAL SUBCUT PRN (07:30)
[2018-11-03] MEDS ORDERED: DIPH/PERTUSS(ACELL)/TETANUS VAC/PF 0.5 ML SYR (>=10YO) IM PRN (07:30)
[2018-11-03] MEDS ORDERED: PROMETHAZINE HCL INJ 25 MG/1 ML VIAL IV PRN (07:30)
--- NOTE | 2018-11-03 10:34 | PDOC PROGRESS REPORT ---
Subjective-OB Progress Note for:: 11/03/18 Subjective: Doing well, no c/o, bottle feeding, lochia scant Physical Exam (OB) Vital Signs: Temp Pulse Resp BP Pulse Ox 97.8 F 58 L 15 106/69 100 11/03/18 08:04 11/03/18 08:04 11/03/18 08:04 11/03/18 08:04 11/03/18 08:04 Intake & Output 11/02/18 11/03/18 11/04/18 06:59 06:59 06:59 Intake Total 273 Balance 273 Weight 87.7 kg - Lochia Lochia Amount: Moderate 25-50 ml Lochia Color: Rubra/Red - Abdomen Description: Soft, Round Hernia Present: No Fundal Description: Firm, Midline Fundal Height: u/u - u/2 Objective-Diagnostic Laboratory: 11/03/18 06:41 11/02/18 11/02/18 11/02/18 11:13 12:18 12:18 WBC 12.2 H RBC 4.19 Hgb 12.9 Hct 38.2 MCV 91 MCH 30.7 MCHC 33.8 RDW 12.9 Plt Count 276 Seg Neutrophils % 85.0 H Lymphocytes % 10.6 L Monocytes % 3.8 Eosinophils % 0.4 Basophils % 0.2 Absolute Neutrophils 10.4 H Absolute Lymphocytes 1.3 Absolute Monocytes 0.5 Absolute Eosinophils 0.1 Absolute Basophils 0.0 Urine Color YELLOW Urine Appearance SLIGHTLY-CLOUDY Urine pH 6.0 Ur Specific [place] 1.012 Urine Protein NEGATIVE Urine Glucose (UA) NEGATIVE Urine Ketones TRACE H Urine Blood SMALL H Urine Nitrite NEGATIVE Ur Leukocyte Esterase NEGATIVE Blood Type A POSITIVE Antibody Screen NEGATIVE 11/03/18 06:41 WBC 14.8 H RBC 3.86 Hgb 11.9 L Hct 35.1 L MCV 91 MCH 30.8 MCHC 33.9 RDW 12.7 Plt Count 243 Seg Neutrophils % Lymphocytes % Monocytes % Eosinophils % Basophils % Absolute Neutrophils Absolute Lymphocytes Absolute Monocytes Absolute Eosinophils Absolute Basophils Urine Color Urine Appearance Urine pH Ur Specific [place] Urine Protein Urine Glucose (UA) Urine Ketones Urine Blood Urine Nitrite Ur Leukocyte Esterase Blood Type Antibody Screen Assessment and Plan(PN) - Assessment and Plan (1) Positive GBS test Is this a current diagnosis for this admission?: Yes (2) Delivery normal Is this a current diagnosis for this admission?: Yes (3) Active labor at term Is this a current diagnosis for this admission?: Yes - Time Spent with Patient Time with patient: Less than 15 minutes Medications reviewed and adjusted accordingly: Yes - Disposition Anticipated Discharge: Home Within: within 24 hours
[2018-11-03] MEDS: FERROUS SULFATE 325 MG TABLET PO SCH ×2 (11:23→17:08)
[2018-11-03] MEDS: PRENATAL VITAMIN W DHA CAPSULE PO SCH (11:23)
[2018-11-03] MEDS: FAMOTIDINE 20 MG TABLET PO SCH ×3 (11:32→23:00)
[2018-11-03] MEDS: DOCUSATE SODIUM 100 MG CAPSULE PO SCH ×2 (11:32→17:08)
[2018-11-03] MEDS: SENNOSIDES/DOCUSATE 8.6-50 MG 1 EACH TABLET PO SCH (11:33)
[2018-11-04] MEDS: LANSOPRAZOLE 15 MG TAB.RAP.DR PO SCH (06:05)
[2018-11-04] MEDS: IBUPROFEN 800 MG TABLET PO SCH (06:06)
[2018-11-04] MEDS: SENNOSIDES/DOCUSATE 8.6-50 MG 1 EACH TABLET PO SCH (09:28)
[2018-11-04] MEDS: PRENATAL VITAMIN W DHA CAPSULE PO SCH (09:28)
[2018-11-04] MEDS: FAMOTIDINE 20 MG TABLET PO SCH (09:28)
[2018-11-04] MEDS: DOCUSATE SODIUM 100 MG CAPSULE PO SCH (09:28)
[2018-11-04] MEDS: FERROUS SULFATE 325 MG TABLET PO SCH (09:28)
--- NOTE | 2018-11-04 12:02 | PDOC DISCHARGE SUMMARY ---
Final Diagnosis Discharge Date: 11/04/18 - Final Diagnosis (1) Delivery normal Is this a current diagnosis for this admission?: Yes Discharge Data - Discharge Medication Prescriptions: Ibuprofen [Motrin 800 mg Tablet] 800 mg PO Q8HP PRN #60 tablet PRN Reason: Home Medications: Ibuprofen [Motrin 800 mg Tablet] 800 mg PO Q8HP PRN #60 tablet 11/04/18 Vit/Dha [ Multi + Dha Capsule] 1 cap PO DAILY capsule 11/04/18 Procedures: NST Intrapartum Procedure(s): Spontaneous Vaginal Delivery Complication(s): Laceration-Perineal Laceration-Degree: 2nd - Diagnosis Test Laboratory: Temp Pulse Resp BP Pulse Ox 97.6 F 73 18 125/71 99 11/04/18 08:22 11/04/18 08:22 11/04/18 08:22 11/04/18 08:22 11/04/18 08:22 11/02/18 11/02/18 11/03/18 11:13 12:18 06:41 RBC 4.19 3.86 Hgb 12.9 11.9 L Hct 38.2 35.1 L Urine Opiates Screen NEGATIVE - Discharge information/Instructions Discharge Activity: Balance Activity w/Rest, Pelvic Rest Discharge Diet: Regular Disposition: HOME, SELF-CARE Follow up with: [facility] in: 4, Weeks
[2018-11-04 13:04] VITALS: BP 125/70
== END 2018-11-04 13:58 | disposition home or self-care (01) | DRG 807 ==
LOC: LC 09:29 → LR 11:28 → 2S 22:00
PROVIDERS: ADMIT Obstetrics & Gynecology; ATTEND Obstetrics & Gynecology
PROC: 10E0XZZ Delivery of Products of Conception, External Approach (ICD-10-PCS; principal; 2018-11-02)
PROC: 0KQM0ZZ Repair Perineum Muscle, Open Approach (ICD-10-PCS; 2018-11-02)
DX: O99.824 Streptococcus B carrier state complicating childbirth (principal); Z37.0 Single live birth; O70.1 Second degree perineal laceration during delivery; Z3A.39 39 weeks gestation of pregnancy
CPT/HCPCS: 36415; 80307; 81005; 85025; 85027; 86592; 86850; 86900; 86901; 94760; J2300; J2540; J2590; J3490

== ENCOUNTER 2020-02-04 20:22 | Outpatient (CLI) | payer OTHER ==
[2020-02-04 21:14] LABS: APPEARANCE,URINE CLEAR; BILIRUBIN,URINE NEGATIVE (NEGATIVE); COLOR,URINE YELLOW; GLUCOSE, URINE NEGATIVE (NEGATIVE); KETONES,URINE NEGATIVE (NEGATIVE); LEUKOCYTE ESTERASE,URINE NEGATIVE (NEGATIVE); NITRITE,URINE NEGATIVE (NEGATIVE); PROTEIN,URINE NEGATIVE (NEGATIVE); URINE SPECIFIC GRAVITY 1.025; UROBILINOGEN,URINE NEGATIVE mg/dL (<2.0)
[2020-02-04 21:28] LABS: URINE AMPHETAMINES SCREEN NEGATIVE; URINE BARBITURATES SCREEN NEGATIVE; URINE BENZODIAZEPINES SCREEN NEGATIVE; URINE COCAINE SCREEN NEGATIVE; URINE MARIJUANA (THC) SCREEN NEGATIVE; URINE METHADONE SCREEN NEGATIVE; URINE PHENCYCLIDINE SCREEN NEGATIVE
== END 2020-02-04 22:46 | disposition home or self-care (01) ==
LOC: LC 20:22
PROVIDERS: ATTEND Obstetrics & Gynecology
PROC: 4A1HXCZ Monitoring of Products of Conception, Cardiac Rate, External Approach (ICD-10-PCS; principal; 2020-02-04)
DX: O47.1 False labor at or after 37 completed weeks of gestation (principal); Z3A.38 38 weeks gestation of pregnancy
CPT/HCPCS: 59025; 80307; 81005

== ENCOUNTER 2020-02-05 03:09 | Inpatient (IN) | payer OTHER ==
[2020-02-05] MEDS ORDERED: MISOPROSTOL 0.2 MG TABLET ONE (03:15)
[2020-02-05] MEDS ORDERED: OXYTOCIN 10 UNIT/ML VIAL ONE (03:15)
[2020-02-05] MEDS ORDERED: OXYTOCIN/NORMAL SALINE 20 UNIT/1,000 ML RTUINJ ONE (03:15)
[2020-02-05] MEDS ORDERED: LIDOCAINE 1% INJ-PF (10 MG/ML) 30 ML SDV ONE (03:15)
[2020-02-05] MEDS ORDERED: RINGERS SOLUTION,LACTATED 1,000 ML IV ONE (03:23)
[2020-02-05] MEDS ORDERED: RINGERS SOLUTION,LACTATED 1,000 ML IV PRN (03:23)
--- NOTE | 2020-02-05 03:24 | Non Stress Test Report ---
Non Stress Test Datetime Report Generated by CPN: 02/05/2020 03:24 DEMOGRAPHIC Test Number: 1 EGA NST: 38.6 INDICATION Indication for Study (NST) Other: LC URINE RESULTS Urine Protein, NST: Negative Urine Ketones - NST: Negative Urine Glucose - NST: Negative Urine Blood - NST: Negative MONITORING Monitor Explained: Monitor Explained; Test Explained; Patient Verbalized Understanding Time on Monitor: 02/04/2020 20:43 Time off Monitor: 02/04/2020 21:31 NST Duration: 48 NST INTERVENTIONS NST Interventions: PO Hydration Physician Notified NST: Dr. Franco BABY A: [id number] BABY A Movement : Present Contraction Frequency : 2-5 FHR Baseline : 130 Accelerations : 15X15 Decelerations : None Variability : Moderate 6-25bpm NST Review: Meets Criteria for Reactive NST NST Review and Verified By : Lona York RN NST Results: Reactive NST REPORT Report Trigger: Send Report
--- NOTE | 2020-02-05 04:09 | Admission Physical ---
Datetime Report Generated by CPN: 02/05/2020 04:08 CURRENT ADMISSION Chief Complaint: Uterine Contractions Indication for Induction: Not Applicable Admit Impression : Active Labor Admit Plan: Admit to Unit; Initiate Labor Protocol ALLERGIES Medication Allergies: Yes Medication Allergies: sulfamethoxazole (07/24/2018); trimethoprim (07/24/2018) Latex: No Latex Allergies Food Allergies: denies Environmental Allergies: denies OBSTETRICAL HISTORY EDC: 02/12/2020 00:00 : 2 Para: 1 Term: 1 : 0 SAB: 0 IAB: 0 Livin Gestational Diabetes: No Rh Sensitization: No Incompetent Cervix: No JOHNSON: No Infertility: No ART Treatment: No Uterine Anomaly: No IUGR: No Hx Previous C/S: No Macrosomia: No Hx Loss/Stillborn: No PIH: No Hx : No Placenta Previa/Abruption: No Depression/PP Depression: No PTL/PROM: No Post Hemorrhage: No Current Procedures: Ultrasound; NST Obstetrical History Comments: g1-2019, , male, no complications g2-current SEE RECORDS Alcohol: No Marijuana : No Cocaine: No Other Illicit Drugs: No Cigarettes: Never Smoker. [id number] MEDICAL HISTORY Diabetes: No Blood Transfusion: No Pulmonary Disease (Asthma, TB): No Breast Disease: No Hypertension: No Carpet Technician Surgery: No Heart Disease: No Hosp/Surgery: Yes Autoimmune Disorder: No Anesthetic Complications: No Kidney Disease: No Abnormal Pap Smear: No Neuro/Epilepsy: No Psychiatric Disorders: No Other Medical Diseases: No Hepatitis/Liver Disease: No Significant Family History: No Varicosities/Phlebitis: No Trauma/Violence : No Thyroid Dysfunction: No Medical History Comments: childbirth x 1 INFECTIOUS HISTORY Gonorrhea: No Genital Herpes: No Chlamydia: No Tuberculosis: No Syphilis: No Hepatitis: No HIV/AIDS Exposure: No Rash or Viral Illness: No HPV: No PHYSICAL EXAM General: Normal HEENT: Normal Neurologic: Normal Thyroid: Normal Heart: Normal Lungs: Normal Breast: Deferred Back: Normal Abdomen: Normal Genitourinary Exam: Normal Extremities: Normal DTRs: Normal Pelvic Type: Adequate Vital Signs: Reviewed VAGINAL EXAM Dilatation: 10 Effacement: 100 Station: 2 MEMBRANES Pooling: Positive Membranes: Ruptured FETUS A EGA: 39.0 Monitoring: External US FHR- Baseline: 120 Variability: Moderate 6-25bpm Accelerations: 15X15 Decelerations: None Presentation: Vertex Admit Comment: PLANS FOR LABOR AND DELIVERY Labor and Delivery: Plan Pain Management: Natural; Medications Feeding Preference: Formula Benefit of Breast Feed Discussed: Yes Circumcision: N/A INFORMED CONSENT Signature: with User ID: [email or web address]
[2020-02-05] MEDS ORDERED: GLYCERIN/WITCH HAZEL LEAF 1 EACH MED..WIPE TP PRN (04:13)
[2020-02-05] MEDS ORDERED: OXYTOCIN/NORMAL SALINE 20 UNIT/1,000 ML RTUINJ IV PRN (04:13)
[2020-02-05] MEDS ORDERED: NA PHOS,M-B/NA PHOS,DI-BA (ADULT) 133 ML ENEMA PR PRN (04:13)
[2020-02-05] MEDS ORDERED: PROMETHAZINE HCL 25 MG SUPP.RECT PR PRN (04:13)
[2020-02-05] MEDS ORDERED: MEASLES,MUMPS&RUBELLA VACC/PF 0.5 ML VIAL SUBCUT PRN (04:13)
[2020-02-05] MEDS ORDERED: BENZOCAINE/MENTHOL AEROSOL SPRAY 56 ML TOP PRN (04:13)
[2020-02-05] MEDS ORDERED: DIBUCAINE 1% OINTMENT 28 GM TP PRN (04:13)
[2020-02-05] MEDS ORDERED: ACETAMINOPHEN WITH CODEINE #3 TABLET PO PRN ×2 (04:13)
[2020-02-05] MEDS ORDERED: MISOPROSTOL 0.2 MG TABLET PR PRN (04:13)
[2020-02-05] MEDS ORDERED: DIPH/PERTUSS(ACELL)/TETANUS VAC/PF 0.5 ML SYR (>=10YO) IM PRN (04:13)
[2020-02-05] MEDS ORDERED: MAGNESIUM HYDROXIDE SUSP 30 ML UDCUP PO PRN (04:13)
[2020-02-05] MEDS ORDERED: PROMETHAZINE HCL 25 MG TABLET PO PRN (04:13)
[2020-02-05] MEDS ORDERED: ACETAMINOPHEN 650 MG SUPP.RECT PR PRN (04:13)
[2020-02-05] MEDS ORDERED: PSEUDOEPHEDRINE HCL 30 MG TABLET PO PRN (04:13)
[2020-02-05] MEDS ORDERED: PROMETHAZINE HCL INJ 25 MG/1 ML VIAL IV PRN (04:13)
[2020-02-05] MEDS ORDERED: ZOLPIDEM TARTRATE 5 MG TABLET PO PRN (04:13)
[2020-02-05] MEDS ORDERED: DIPHENHYDRAMINE HCL 25 MG CAPSULE PO PRN (04:13)
[2020-02-05 04:29] LABS: ABSOLUTE EOSINOPHILS # (AUTO) 0.1 10^3/uL (0.0-0.6); ABSOLUTE LYMPHOCYTES (AUTO) 1.9 10^3/uL (0.5-4.7); ABSOLUTE MONOCYTES (AUTO) 0.5 10^3/uL (0.1-1.4); ABSOLUTE NEUT (AUTO) 7.5 10^3/uL (1.7-8.2); BASOPHILS % (AUTO) 0.2 % (0-2); EOSINOPHILS % (AUTO) 0.6 % (0-6); HEMATOCRIT 35.8 % (36.0-47.0); HEMOGLOBIN 12.3 g/dL (12.0-15.5); LYMPHOCYTES % (AUTO) 18.9 % (13-45); MEAN CORPUSCULAR HEMOGLOBIN 30.9 pg (27.0-33.4); MEAN CORPUSCULAR HGB CONC 34.4 g/dL (32.0-36.0); MEAN CORPUSCULAR VOLUME 90 fl (80-97); MONOCYTES % (AUTO) 5.4 % (3-13); PLATELET COUNT 246 10^3/uL (150-450); RED BLOOD COUNT 3.99 10^6/uL (3.72-5.28); RED CELL DISTRIBUTION WIDTH 13.3 % (11.5-14.0); SEGMENTED NEUTROPHILS % (AUTO) 74.9 % (42-78); TOTAL CELLS COUNTED % (AUTO) 100 %
[2020-02-05] MEDS ORDERED: ONDANSETRON 4 MG TAB.RAPDIS ONE (04:45)
--- NOTE | 2020-02-05 04:52 | Delivery Summary ---
Del Sum A-C Datetime Report Generated by CPN: 02/05/2020 04:52 DELIVERY PERSONNEL DELIVERY PERSONNEL: [id number] Delivery Doctor:: Bartolo Franco MD Labor and Delivery Nurse:: Elvira Higuera RNmotor vehicle dispatcher Nurse:: Jean Marie Nichols RN Nursery Nurse:: Bria Hamm RN Nursery Nurse:: Deana Mcgovern RN Coal Dumping Equipment Operator/REGULATORY AGENCY DIRECTOR: [facility] [place] Coal Dumping Equipment Operator/REGULATORY AGENCY DIRECTOR: Coreen Larson, DESKTOP ENGINEER Additional Personnel: : Venessa Garrido, RN MATERNAL INFORMATION Delivery Anesthesia: None Medications After Delivery: Pitocin Bolus-Please Comment; Other-Please Comment Meds After Delivery Comment: Cytotec 1000mcg PO; 20 units pitocin bolus following placenta delivery Estimated Blood Loss (ml): 250 Delivery QBL: 100 Delivery QBL Comment: QBL= Delivery 100ml, immediately after delivery another 208ml was expressed during fundal massage Maternal Complications: None LABOR SUMMARY EDC: 02/12/2020 00:00 No. Babies in Womb: 1 Attempted: No Labor Anesthesia: None LABOR INFORMATION Reason for Induction: Not Applicable Onset of Labor: 02/05/2020 00:00 Complete Dilatation: 02/05/2020 03:30 Oxytocin: N/A Group B Beta Strep: neg Antibiotics # of Doses: 0 Antibiotics Time of Last Dose: 0 Name of Antibiotic Given: 0 Steroids Given: None Reason Steroids Not Administered: Not Applicable MEMBRANES Membranes Rupture Method: Spontaneous Rupture of Membranes: 02/05/2020 02:45 Length of Rupture (hr): 1.13 Amniotic Fluid Color: Bloody Amniotic Fluid Amount: Moderate Amniotic Fluid Odor: Normal STAGES OF LABOR Stage 1 hr: 3 Stage 1 min: 30 Stage 2 hr: 0 Stage 2 min: 23 Stage 3 hr: 0 Stage 3 min: 4 Total Time in Labor hr: 3 Total Time in Labor min: 57 VAGINAL DELIVERY Episiotomy: None Laceration #1: None Laceration Extension #1: N/A Laceration #2: None Laceration Extension #2: N/A Laceration #3: None Laceration Extension #3: N/A Laceration Repair: Not Applicable Sponge Count Correct: Vaginal Sweep Performed Sharps Count Correct: Yes CSECTION DELIVERY Primary Indication: N/A Secondary Indication: N/A CSection Urgency: N/A CSection Incidence: N/A Labor: N/A Elective: N/A CSection Incision: N/A BABY A INFORMATION Infant Delivery Date/Time: 02/05/2020 03:53 Method of Delivery: Vaginal Nurse Controlled Delivery: No Born in Route : No : N/A Forceps: N/A Vacuum Extraction: N/A Shoulder Dystocia : No PRESENTATION/POSITION BABY A Presentation: Cephalic Cephalic Presentation: Vertex Vertex Position: Left Occipital Anterior Breech Presentation: N/A PLACENTA INFORMATION BABY A Placenta Delivery Time : 02/05/2020 03:57 Placenta Method of Delivery: Spontaneous Placenta Status: Delivered SCORES BABY A Heart Rate 1 min: >100 bpm Resp Effort 1 min: Good Cry Reflex Irritability 1 min: Cough or Sneeze or Pulls Away Muscle Tone 1 min: Active Motion Color 1 min: Completely Mina Resuscitation Effort 1 min: Tactile Stimulation SCORE 1 MIN: 10 Heart Rate 5 min: >100 bpm Resp Effort 5 min: Good Cry Reflex Irritability 5 min: Cough or Sneeze or Pulls Away Muscle Tone 5 min: Active Motion Color 5 min: Completely Mina SCORE 5 MIN: 10 INFORMATION BABY A Gestational Age at Delivery: 39.0 Gestational Status: Full Term- 39- 40.6 Weeks Infant Outcome : Liveborn Infant Condition : Stable Infant Sex: Ambiguous IDENTIFICATION BABY A Verification Date/Time: 02/05/2020 04:52 ID Band Number: [id number] Mother's Name Verified: Yes WEIGHT/LENGTH BABY A Infant Birthweight (gm): 3502 Infant Weight (lb): 7 Weight (oz): 12 Length (in): 20.00 Length (cm): 50.80 CORD INFORMATION BABY A No. Cord Vessels: 3 Nuchal Cord : N/A Cord Blood Taken: Yes-For Storage (Mom's Blood type +) Infant Suction: Mouth ASSESSMENT BABY A Infant Complications: None Physical Findings at Delivery: Other Physical Findings- Other: see nursery assessment Infant Respirations: Appears Normal Skin to Skin: No (Annotations: declined) Ship Liner/ALS Called : No Infant Care By: Anival Hamm RN Transferred To: Remains with Mother BABY B INFORMATION : N/A SIGNATURES Signature: with User ID: [email or web address]
[2020-02-05] MEDS ORDERED: ACETAMINOPHEN WITH CODEINE #3 TABLET ONE (05:09)
[2020-02-05] MEDS ORDERED: IBUPROFEN 800 MG TABLET ONE (05:10)
[2020-02-05] MEDS: IBUPROFEN 800 MG TABLET PO SCH ×3 (05:11→22:02)
[2020-02-05] MEDS: FERROUS SULFATE 325 MG TABLET PO SCH ×2 (12:00→17:56)
[2020-02-05] MEDS: DOCUSATE SODIUM 100 MG CAPSULE PO SCH ×2 (12:00→17:56)
[2020-02-05] MEDS: FAMOTIDINE 20 MG TABLET PO SCH ×2 (12:00→22:02)
[2020-02-05] MEDS: PRENATAL VITAMIN W DHA CAPSULE PO SCH (12:01)
[2020-02-05] MEDS: SENNOSIDES/DOCUSATE 8.6-50 MG 1 EACH TABLET PO SCH (12:01)
[2020-02-06] MEDS: IBUPROFEN 800 MG TABLET PO SCH ×3 (05:11→21:16)
[2020-02-06 06:23] LABS: HEMATOCRIT 27.4 % (36.0-47.0); MEAN CORPUSCULAR HEMOGLOBIN 31.3 pg (27.0-33.4); MEAN CORPUSCULAR HGB CONC 35.1 g/dL (32.0-36.0); MEAN CORPUSCULAR VOLUME 89 fl (80-97); PLATELET COUNT 208 10^3/uL (150-450); RED BLOOD COUNT 3.07 10^6/uL (3.72-5.28); RED CELL DISTRIBUTION WIDTH 13.1 % (11.5-14.0)
[2020-02-06 06:25] LABS: HEMOGLOBIN 9.6 g/dL (12.0-15.5)
[2020-02-06] MEDS: DOCUSATE SODIUM 100 MG CAPSULE PO SCH ×2 (09:34→17:24)
[2020-02-06] MEDS: SENNOSIDES/DOCUSATE 8.6-50 MG 1 EACH TABLET PO SCH (09:34)
[2020-02-06] MEDS: PRENATAL VITAMIN W DHA CAPSULE PO SCH (09:34)
[2020-02-06] MEDS: FAMOTIDINE 20 MG TABLET PO SCH ×2 (09:34→21:16)
[2020-02-06] MEDS: FERROUS SULFATE 325 MG TABLET PO SCH ×2 (09:34→17:24)
--- NOTE | 2020-02-06 10:09 | PDOC PROGRESS REPORT ---
Subjective-OB Progress Note for:: 02/06/20 Subjective: reports bleeding slowing, pain controlled with current meds. denies needs Physical Exam (OB) Vital Signs: Temp Pulse Resp BP Pulse Ox 97.8 F 66 16 109/68 100 02/06/20 07:44 02/06/20 07:44 02/06/20 07:44 02/06/20 07:44 02/06/20 07:44 Intake & Output 02/05/20 02/06/20 02/07/20 06:59 06:59 06:59 Intake Total 900 Balance 900 Weight 95 kg - Abdomen Description: Soft, Round Hernia Present: No Fundal Description: Firm, Midline Fundal Height: u/u - u/2 - Abdominal Distension: No distension Tenderness: Nontender - Extremities Lower extremities: Efrem's sign - neg Calf: Normal, Nontender Objective-Diagnostic Laboratory: 02/06/20 05:59 02/06/20 05:59 WBC 8.0 RBC 3.07 L Hgb 9.6 L D Hct 27.4 L MCV 89 MCH 31.3 MCHC 35.1 RDW 13.1 Plt Count 208 Assessment and Plan(PN) - Assessment and Plan (1) Active labor at term Is this a current diagnosis for this admission?: Yes (2) Delivery normal Is this a current diagnosis for this admission?: Yes (3) Positive GBS test Is this a current diagnosis for this admission?: Yes - Time Spent with Patient Time with patient: Less than 15 minutes - Disposition Anticipated Discharge: Home Within: within 24 hours
[2020-02-07] MEDS: IBUPROFEN 800 MG TABLET PO SCH (05:51)
[2020-02-07] MEDS: PRENATAL VITAMIN W DHA CAPSULE PO SCH (09:50)
[2020-02-07] MEDS: FAMOTIDINE 20 MG TABLET PO SCH (09:50)
[2020-02-07] MEDS: SENNOSIDES/DOCUSATE 8.6-50 MG 1 EACH TABLET PO SCH (09:50)
[2020-02-07] MEDS: FERROUS SULFATE 325 MG TABLET PO SCH (09:51)
[2020-02-07] MEDS: DOCUSATE SODIUM 100 MG CAPSULE PO SCH (09:51)
[2020-02-07 12:04] VITALS: BP 124/84
--- NOTE | 2020-02-07 12:11 | PDOC DISCHARGE SUMMARY ---
Impression - Admit/DC Date/PCP Admission Date/Primary Care Provider: 02/05/20 03:26 ALOK CLEANING MD Discharge Date: 02/07/20 - Discharge Diagnosis (1) Positive GBS test Is this a current diagnosis for this admission?: Yes (2) Delivery normal Is this a current diagnosis for this admission?: Yes (3) Active labor at term Is this a current diagnosis for this admission?: Yes (4) Acute blood loss anemia Is this a current diagnosis for this admission?: Yes - Assessment Summary: stable for discharge, verbalized understanding of pp warning s/s - Additional Information Resuscitation Status: Full Code Discharge Diet: As Tolerated, Regular Discharge Activity: Activity As Tolerated, Balance Activity w/Rest, No Lifting Over 10 Pounds, Pelvic Rest, No tub bath, Walk Frequently Referrals: ALOK CLEANING MD [Primary Care Provider] - Prescriptions: Ibuprofen [Motrin 800 mg Tablet] 800 mg PO Q8HP PRN #20 tablet PRN Reason: Abdominal Cramping Docusate Sodium [Colace 100 mg Capsule] 100 mg PO BID #60 capsule Ferrous Sulfate [Feosol 325 mg Tablet] 325 mg PO BID #60 tablet Home Medications: Vit/Dha [ Multi + Dha Capsule] 1 cap PO DAILY capsule 11/04/18 Docusate Sodium [Colace 100 mg Capsule] 100 mg PO BID #60 capsule 02/07/20 Ferrous Sulfate [Feosol 325 mg Tablet] 325 mg PO BID #60 tablet 02/07/20 Ibuprofen [Motrin 800 mg Tablet] 800 mg PO Q8HP PRN #20 tablet 02/07/20 Results Laboratory Results: WBC 8.0 10^3/uL (4.0-10.5) 02/06/20 05:59 RBC 3.07 10^6/uL (3.72-5.28) L 02/06/20 05:59 Hgb 9.6 g/dL (12.0-15.5) L D 02/06/20 05:59 Hct 27.4 % (36.0-47.0) L 02/06/20 05:59 MCV 89 fl (80-97) 02/06/20 05:59 MCH 31.3 pg (27.0-33.4) 02/06/20 05:59 MCHC 35.1 g/dL (32.0-36.0) 02/06/20 05:59 RDW 13.1 % (11.5-14.0) 02/06/20 05:59 Plt Count 208 10^3/uL (150-450) 02/06/20 05:59 Lymph % (Auto) 18.9 % (13-45) 02/05/20 04:17 Butts % (Auto) 5.4 % (3-13) 02/05/20 04:17 Eos % (Auto) 0.6 % (0-6) 02/05/20 04:17 Baso % (Auto) 0.2 % (0-2) 02/05/20 04:17 Absolute Neuts (auto) 7.5 10^3/uL (1.7-8.2) 02/05/20 04:17 Absolute Lymphs (auto) 1.9 10^3/uL (0.5-4.7) 02/05/20 04:17 Absolute Monos (auto) 0.5 10^3/uL (0.1-1.4) 02/05/20 04:17 Absolute Eos (auto) 0.1 10^3/uL (0.0-0.6) 02/05/20 04:17 Absolute Basos (auto) 0.0 10^3/uL (0.0-0.2) 02/05/20 04:17 Seg Neutrophils % 74.9 % (42-78) 02/05/20 04:17 RPR NONREACTIVE (NONREACTIVE) 02/05/20 04:17 Blood Type A POSITIVE 02/05/20 04:17 Antibody Screen NEGATIVE 02/05/20 04:17
== END 2020-02-07 13:05 | disposition home or self-care (01) | DRG 806 ==
LOC: LC 03:09 → LR 03:26 → 2S 06:10
PROVIDERS: ADMIT Obstetrics & Gynecology; ATTEND Obstetrics & Gynecology
PROC: 10E0XZZ Delivery of Products of Conception, External Approach (ICD-10-PCS; principal; 2020-02-05)
DX: O99.824 Streptococcus B carrier state complicating childbirth (principal); D62 Acute posthemorrhagic anemia; Z37.0 Single live birth; Z88.2 Allergy status to sulfonamides; Z3A.39 39 weeks gestation of pregnancy; O99.02 Anemia complicating childbirth
CPT/HCPCS: 36415; 85025; 85027; 86592; 86850; 86900; 86901; J2590; J3490; S0119